=== PATIENT | male | born 1975 | race Caucasian/White ===

== ENCOUNTER 2017-01-04 10:04 | Emergency (ER) | payer MEDICARE ==
[~2017-01-04] VITALS: Ht 193 cm; Wt 105.0 kg
[2017-01-04] MEDS ORDERED: BACL-141 PO (10:09)
[2017-01-04] MEDS ORDERED: OMEP20CA10 PO (10:09)
[2017-01-04] MEDS ORDERED: HYDR-3735 GT (10:09)
[2017-01-04] MEDS ORDERED: GABA-531 PO (10:09)
[2017-01-04] MEDS ORDERED: ONDANSETRON HCL 4MG/2ML VIAL IV STA (10:53)
[2017-01-04] MEDS ORDERED: MORPHINE SULFATE 4 MG/ML CPJ (NOT FOR IM USE) IV STA (10:53)
[2017-01-04] MEDS ORDERED: BACITRACIN ZINC OINT UDPKT TOP ONE (11:00)
[2017-01-04] MEDS ORDERED: TETANUS, DIPHTHERIA, PERTUSSIS VAC/PF 0.5ML (>7YR OLD) IM ONE (11:00)
[2017-01-04 11:11] LABS: BASOPHILS % 1.3 % (0.0-2.0); EOSINOPHILS % 3.7 % (0.0-5.0); HEMATOCRIT. 43.3 % (42.0-52.0); HEMOGLOBIN. 14.7 g/dL (14.0-18.0); LYMPHOCYTES % 22.1 % (20.0-50.0); MEAN CORPUSCULAR HGB CONC 33.9 g/dL (31.0-37.0); MEAN CORPUSCULAR VOLUME 94.4 fL (80.0-94.0); MEAN PLATELET VOLUME 8.8 fl (7.4-10.4); MONOCYTES % 7.6 % (2.0-8.0); NEUTROPHILS % 65.3 % (40.0-76.0); PLATELET 80 x1000/uL (130-400); RED BLOOD CELL COUNT 4.59 mill/uL (4.7-6.1); RED CELL DISTRIBUTION WIDTH 15.5 % (11.6-14.6); WHITE BLOOD COUNT 3.9 x1000/uL (4.5-11.0)
[2017-01-04 11:13] LABS: BG BASE EXCESS -1.4 mmol/L (-2.0-2.0); BG CARBOXYHEMOGLOBIN 0.5 % (0.5-1.5); BG HCO3 ACT 23.2 mmol/L (22.0-26.0); BG METHEMOGLOBIN 0.3 % (0.0-1.5); BG OXYHEMOGLOBIN 93.2 % (94.0-97.0); BG PCO2 38.8 mmHg (35.0-45.0); BG PH 7.394 (7.350-7.450); BG PO2 74.7 mmHg (75.0-100.0); BG SAMPLE SITE RIGHT BRACHIAL; BG TOTAL HEMOGLOBIN 15.4 g/dL (12.0-18.0); BG VENT MODE ROOM AIR
[2017-01-04 11:18] LABS: CALCIUM 8.9 mg/dL (8.5-10.1); CHLORIDE 112 mEq/L (98-107); INDEX HEMOLYSI 1 (1-3); INDEX ICTERIC 1 (1-4); INDEX LIPEMIC 1 (1-3)
[2017-01-04 11:20] LABS: CLARITY URINE CLEAR (CLEAR); COLOR URINE YELLOW (YELLOW); GLUCOSE URINE NEGATIVE (NEGATIVE); KETONES URINE NEGATIVE (NEGATIVE); LEUKOCYTE ESTERASE URINE NEGATIVE (NEGATIVE); NITRITE URINE NEGATIVE (NEGATIVE); OCCULT BLOOD URINE NEGATIVE (NEGATIVE); PH URINE 6.5 (4.5-8.0); PROTEIN URINE NEGATIVE (NEGATIVE); SPECIFIC GRAVITY URINE 1.006 (1.005-1.030)
[2017-01-04 11:23] LABS: INR 1.2; PROTHROMBIN TIME 12.3 sec
[2017-01-04 11:27] LABS: ALANINE AMINOTRANSFERASE 18 IU/L (13-61); AMMONIA 35 uMol/L (<32); ANION GAP 10; CARBON DIOXIDE 30 mEq/L (21-32); ETHANOL BLOOD 296 mg/dL; LIPASE 323 IU/L (73-393); NT PRO B-TYPE NATRIURETIC PEP 132 pg/mL (5-125); TROPONIN I < 0.02 ng/mL (0.00-0.04); UREA NITROGEN BLOOD 10 mg/dL (7-21); eGFR > 60 mL/min (>60)
[2017-01-04 11:32] LABS: THYROID STIMULATING HORMONE 0.99 uIU/mL (0.36-3.74)
[2017-01-04 11:37] LABS: *AMPHETAMINES SCREEN URINE NEGATIVE (NEGATIVE); *BARBITURATES SCREEN URINE NEGATIVE (NEGATIVE); *BENZODIAZEPINES SCREEN URINE NEGATIVE (NEGATIVE); *COCAINE SCREEN URINE NEGATIVE (NEGATIVE); CANNABINOID URINE SCREEN NEGATIVE (NEGATIVE); ECSTASY MDMA SCREEN URINE NEGATIVE (NEGATIVE); METHADONE URINE SCREEN NEGATIVE (NEGATIVE); OPIATES URINE SCREEN NEGATIVE (NEGATIVE); PHENCYCLIDINE URINE SCREEN NEGATIVE (NEGATIVE)
[2017-01-04] MEDS ORDERED: DIPHENHYDRAMINE 50MG CAPSULE PO ONE (19:15)
[2017-01-05] MEDS ORDERED: LORAZEPAM 1MG TABLET PO ONE (00:45)
[2017-01-05 18:45] VITALS: BP 125/74
== END 2017-01-05 18:45 | disposition home or self-care (01) ==
LOC: ER 10:09
DX: G93.49 Other encephalopathy (principal); F10.20 Alcohol dependence, uncomplicated; F10.129 Alcohol abuse with intoxication, unspecified; F32.9 Major depressive disorder, single episode, unspecified; K74.60 Unspecified cirrhosis of liver; D69.6 Thrombocytopenia, unspecified; Z90.49 Acquired absence of other specified parts of digestive tract; Z88.8 Allergy status to other drugs, medicaments and biological substances; W01.198A Fall on same level from slipping, tripping and stumbling with subsequent striking against other object, initial encounter; Y93.89 Activity, other specified; Y92.89 Other specified places as the place of occurrence of the external cause; Y99.8 Other external cause status
CPT/HCPCS: 36415; 36600; 70450; 70486; 71010; 72125; 80053; 80305; 81003; 82140; 82375; 82805; 83690; 83880; 84443; 84484; 85025; 85610; 90471; 90715; 93005; 96374; 96375; 99285; G0482; J2270; J2405; Q0163

== ENCOUNTER 2017-01-14 14:07 | Emergency (ER) | payer MEDICARE ==
[~2017-01-14] VITALS: Ht 180.3 cm; Wt 90.0 kg
[~2017-01-14 14:07] MED LIST: BACL-141 PO; GABA-531 PO; HYDR-3735 GT; OMEP20CA10 PO
[2017-01-14 15:28] LABS: BASOPHILS % 0.9 % (0.0-2.0); EOSINOPHILS % 5.5 % (0.0-5.0); HEMATOCRIT. 42.5 % (42.0-52.0); HEMOGLOBIN. 14.1 g/dL (14.0-18.0); LYMPHOCYTES % 38.3 % (20.0-50.0); MEAN CORPUSCULAR HGB CONC 33.2 g/dL (31.0-37.0); MEAN CORPUSCULAR VOLUME 93.2 fL (80.0-94.0); MEAN PLATELET VOLUME 8.5 fl (7.4-10.4); MONOCYTES % 7.7 % (2.0-8.0); NEUTROPHILS % 47.6 % (40.0-76.0); PLATELET 90 x1000/uL (130-400); RED BLOOD CELL COUNT 4.56 mill/uL (4.7-6.1); RED CELL DISTRIBUTION WIDTH 15.9 % (11.6-14.6); WHITE BLOOD COUNT 4.4 x1000/uL (4.5-11.0)
[2017-01-14 15:33] LABS: INR 1.2; PARTIAL THROMBOPLASTIN TIME 31.7 sec (24.0-34.0); PROTHROMBIN TIME 12.3 sec
[2017-01-14 15:36] LABS: ALBUMIN 3.1 g/dL (3.4-5.0); ANION GAP 14; CALCIUM 8.2 mg/dL (8.5-10.1); CARBON DIOXIDE 26 mEq/L (21-32); CHLORIDE 109 mEq/L (98-107); INDEX HEMOLYSI 1 (1-3); INDEX ICTERIC 1 (1-4); INDEX LIPEMIC 1 (1-3); UREA NITROGEN BLOOD 11 mg/dL (7-21)
[2017-01-14 15:42] LABS: ALANINE AMINOTRANSFERASE 20 IU/L (13-61); CREATINE KINASE 109 IU/L (39-308); CREATINE KINASE MB FRACTION 0.6 ng/mL (0.5-3.6); TROPONIN I < 0.02 ng/mL (0.00-0.04); eGFR > 60 mL/min (>60)
[2017-01-14 16:28] LABS: *AMPHETAMINES SCREEN URINE NEGATIVE (NEGATIVE); *BARBITURATES SCREEN URINE NEGATIVE (NEGATIVE); *BENZODIAZEPINES SCREEN URINE NEGATIVE (NEGATIVE); *COCAINE SCREEN URINE NEGATIVE (NEGATIVE); CANNABINOID URINE SCREEN NEGATIVE (NEGATIVE); ECSTASY MDMA SCREEN URINE NEGATIVE (NEGATIVE); METHADONE URINE SCREEN NEGATIVE (NEGATIVE); OPIATES URINE SCREEN PRESUMTIVE POSITIVE (NEGATIVE); PHENCYCLIDINE URINE SCREEN NEGATIVE (NEGATIVE)
[2017-01-14] MEDS ORDERED: SODIUM CHLORIDE 0.9% 1,000 ML IV ONE (16:30)
[2017-01-15 01:19] VITALS: BP 120/62
== END 2017-01-15 01:21 | disposition home or self-care (01) ==
LOC: ER 14:13
DX: F10.129 Alcohol abuse with intoxication, unspecified (principal); F41.0 Panic disorder [episodic paroxysmal anxiety]; R42 Dizziness and giddiness; I10 Essential (primary) hypertension; K70.30 Alcoholic cirrhosis of liver without ascites; D64.9 Anemia, unspecified; G47.33 Obstructive sleep apnea (adult) (pediatric); Z87.820 Personal history of traumatic brain injury; Z88.8 Allergy status to other drugs, medicaments and biological substances
CPT/HCPCS: 36415; 70450; 80053; 80305; 82550; 82553; 84484; 85025; 85610; 85730; 93005; 96360; 96361; 99285; G0482; J7030

== ENCOUNTER 2017-03-21 19:15 | Emergency (ER) | payer MEDICARE ==
[~2017-03-21] VITALS: Ht 175.3 cm; Wt 100.0 kg
[2017-03-21] MEDS ORDERED: DIPHENHYDRAMINE 50MG/ML VIAL IV ONE (20:00)
[2017-03-21] MEDS ORDERED: SODIUM CHLORIDE 0.9% 1,000 ML IV ONE (20:00)
[2017-03-21] MEDS ORDERED: METOCLOPRAMIDE HCL 10MG/2ML VIAL IV ONE (20:00)
[2017-03-22 06:21] VITALS: BP 138/85
== END 2017-03-22 06:22 ==
LOC: ER 19:46
DX: G43.909 Migraine, unspecified, not intractable, without status migrainosus (principal); H40.9 Unspecified glaucoma; I10 Essential (primary) hypertension; D64.9 Anemia, unspecified; M54.2 Cervicalgia; M54.9 Dorsalgia, unspecified
CPT/HCPCS: 70450; 96361; 96374; 96375; 99285; J1200; J2765; J7030

== ENCOUNTER 2017-04-20 20:42 | Emergency (ER) | payer MEDICARE ==
[~2017-04-20] VITALS: Ht 182.9 cm; Wt 77.0 kg
[2017-04-20 21:52] VITALS: BP 138/80
== END 2017-04-20 23:03 | disposition left against medical advice (07) ==
LOC: ER 20:51
DX: F99 Mental disorder, not otherwise specified (principal); I10 Essential (primary) hypertension; H40.9 Unspecified glaucoma; Z91.013 Allergy to seafood
CPT/HCPCS: 99284